=== PATIENT | female | born 1945 | race Caucasian/White ===

== ENCOUNTER → 2019-12-31 | Outpatient (CLI) | payer MEDICARE, MEDICAID ==
[~2019-12-31] MED LIST: REGADENOSON 0.4 MG/5 ML SYRINGE ONE
== END | disposition home or self-care (01) ==
LOC: CFH 12:29
PROVIDERS: ATTEND Internal Medicine Cardiovascular Disease
DX: I08.0 Rheumatic disorders of both mitral and aortic valves (principal); I31.3 Pericardial effusion (noninflammatory); I44.7 Left bundle-branch block, unspecified; R68.89 Other general symptoms and signs
CPT/HCPCS: 78452; 93017; 93306; A9502; J2785

== ENCOUNTER 2020-02-04 10:51 | Inpatient (IN) | payer MEDICARE, MEDICAID ==
[~2020-02-04] VITALS: Ht 167.6 cm; Wt 67.5 kg
[2020-02-04] MEDS ORDERED: SODIUM CHLORIDE 0.9% 1,000 ML IV SCH (11:31)
[2020-02-04] MEDS ORDERED: GUAI12009 PO (11:55)
[2020-02-04] MEDS ORDERED: BUDE0.5A INH (11:55)
[2020-02-04] MEDS ORDERED: TURM538C PO (11:55)
[2020-02-04] MEDS ORDERED: SPIR25TA PO (11:55)
[2020-02-04] MEDS ORDERED: MULT-316 PO (11:55)
[2020-02-04] MEDS ORDERED: REVE175V NEB (11:55)
[2020-02-04] MEDS ORDERED: ALBU90AE INH (11:55)
[2020-02-04] MEDS ORDERED: FORM20VI NEB (11:55)
[2020-02-04] MEDS ORDERED: MOME17SP NAS (11:55)
[2020-02-04 11:56] VITALS: BP 135/70
[2020-02-04] MEDS ORDERED: DIPHENHYDRAMINE 50 MG/ML, 1ML IVPush PRN (12:00)
[2020-02-04 12:15] LABS: BASOPHILS # (AUTO) 0.04 x10^3/uL (0-0.1); BASOPHILS % (AUTO) 1 % (0-1); EOSINOPHILS # (AUTO) 0.22 x10^3/uL (0-0.4); EOSINOPHILS % (AUTO) 2 % (1-7); LYMPHOCYTES # (AUTO) 1.72 x10^3/uL (1-3.4); LYMPHOCYTES % (AUTO) 18 % (22-44); MD NO; MEAN CORPUSCULAR HEMOGLOBIN 28.3 pg (27.0-34.8); MEAN CORPUSCULAR HGB CONC 32.8 g/dL (32.4-35.8); MEAN CORPUSCULAR VOLUME 86.3 fL (80-100); MEAN PLATELET VOLUME 9.8 fL (7.4-10.4); MONOCYTES # (AUTO) 0.71 x10^3/uL (0.2-0.8); MONOCYTES % (AUTO) 8 % (2-9); NEUTROPHILS # (AUTO) 6.84 x10^3/uL (1.8-6.8); NEUTROPHILS % (AUTO) 72 % (42-75); PLATELET COUNT 283 x10^3/uL (130-400); RED BLOOD COUNT 4.98 x10^6/uL (3.82-5.3); RED CELL DISTRIBUTION WIDTH 16.1 % (9.6-15.2)
[2020-02-04 12:17] LABS: INTERNATIONAL NORMALIZED RATIO 0.98 (0.93-1.1); PROTHROMBIN TIME 10.4 Seconds (9.6-11.5)
[2020-02-04] MEDS ORDERED: DIPHENHYDRAMINE 50 MG/ML, 1ML ONE (12:17)
[2020-02-04 12:18] LABS: ANION GAP 8 mmol/L (5-15); CALCIUM 9.1 mg/dL (8.5-10.1); CHLORIDE 106 mmol/L (98-107); CREATININE 1.08 mg/dL (0.55-1.02)
[2020-02-04] MEDS ORDERED: MIDAZOLAM 1 MG/ML, 5ML ONE (13:18)
[2020-02-04] MEDS ORDERED: VERAPAMIL 2.5 MG/ML, 2ML ONE (13:19)
[2020-02-04] MEDS ORDERED: LIDOCAINE-MPF 1%, 5ML ONE (13:19)
[2020-02-04] MEDS ORDERED: HEPARIN 1,000 UNITS/ML, 10ML ONE (13:19)
[2020-02-04] MEDS ORDERED: BIVALIRUDIN 250 MG ONE (13:19)
[2020-02-04] MEDS ORDERED: FENTANYL PF 100 MCG/2ML ONE (13:19)
[2020-02-04] MEDS ORDERED: TICAGRELOR 90 MG TABLET ONE (13:19)
[2020-02-04] MEDS ORDERED: FUROSEMIDE 20 MG/2 ML IV ONE (15:00)
[2020-02-04 15:13] VITALS: BP 124/78
[2020-02-04 16:43] LABS: FREE T4 (FREE THYROXINE) 1.1 ng/dL (0.76-1.46)
[2020-02-04 20:15] VITALS: BP 109/72
[2020-02-04] MEDS: LISINOPRIL 10 MG TABLET PO SCH (22:07)
[2020-02-04] MEDS: SODIUM CHLORIDE FLUSH 10ML SYR IVF SCH (22:13)
[2020-02-04 23:52] VITALS: BP 108/87
[2020-02-05 06:10] LABS: ANION GAP 9 mmol/L (5-15); CALCIUM 8.5 mg/dL (8.5-10.1); CHLORIDE 108 mmol/L (98-107); CREATININE 1.12 mg/dL (0.55-1.02)
[2020-02-05 07:50] VITALS: BP 95/60
[2020-02-05] MEDS: LISINOPRIL 10 MG TABLET PO SCH (08:50)
[2020-02-05] MEDS: SODIUM CHLORIDE FLUSH 10ML SYR IVF SCH (08:51)
[2020-02-05] MEDS ORDERED: SPIRONOLACTONE 25 MG TABLET PO SCH (09:00)
[2020-02-05] MEDS ORDERED: LISI-167 PO (09:03)
[2020-02-05] MEDS ORDERED: BUME1TAB21 PO (09:03)
== END 2020-02-05 11:22 | disposition home or self-care (01) | DRG 287 ==
LOC: CACL 10:51 → ORIP 14:31 → 5SO 15:07 → DCLOUNGE 02-05 11:03
PROVIDERS: ADMIT Internal Medicine Cardiovascular Disease; ATTEND Internal Medicine Cardiovascular Disease
PROC: 4A023N8 Measurement of Cardiac Sampling and Pressure, Bilateral, Percutaneous Approach (ICD-10-PCS; principal; 2020-02-04)
PROC: B2111ZZ Fluoroscopy of Multiple Coronary Arteries using Low Osmolar Contrast (ICD-10-PCS; 2020-02-04)
DX: I97.190 Other postprocedural cardiac functional disturbances following cardiac surgery (principal); I42.8 Other cardiomyopathies; I44.1 Atrioventricular block, second degree; J44.9 Chronic obstructive pulmonary disease, unspecified; Z88.6 Allergy status to analgesic agent; Z88.0 Allergy status to penicillin; Z88.8 Allergy status to other drugs, medicaments and biological substances; I44.7 Left bundle-branch block, unspecified; F17.200 Nicotine dependence, unspecified, uncomplicated
CPT/HCPCS: 36415; 80048; 83880; 84439; 84443; 85014; 85018; 85025; 85610; 93005; 93456; 99156; 99157; C1769; C1894; G0378; J0583; J1644; J2250; J3010; J1200; J1940; J7030; Q9967

== ENCOUNTER → 2020-11-14 | Outpatient (CLI) | payer MEDICARE, MEDICAID ==
[~2020-11-14] MED LIST changes: +ALBU90AE INH; +BUDE0.5A INH; +BUME1TAB21 PO; +FORM20VI NEB; +GUAI12009 PO; +LISI-167 PO; +MOME17SP NAS; +MULT-316 PO; -REGADENOSON 0.4 MG/5 ML SYRINGE ONE; +REVE175V NEB; +SPIR25TA PO; +TURM538C PO
== END | disposition home or self-care (01) ==
LOC: CFH 09:40
PROVIDERS: ATTEND Internal Medicine Cardiovascular Disease
DX: I08.0 Rheumatic disorders of both mitral and aortic valves (principal); I11.9 Hypertensive heart disease without heart failure; I42.9 Cardiomyopathy, unspecified; R94.31 Abnormal electrocardiogram [ECG] [EKG]; R06.02 Shortness of breath
CPT/HCPCS: 93306